=== PATIENT | female | born 1975 | race Caucasian/White ===

== ENCOUNTER 2016-04-18 19:41 | Emergency (ER) | payer OTHER ==
[~2016-04-18] VITALS: Ht 177.8 cm; Wt 144.1 kg
[~2016-04-18 19:41] MED LIST: PRENATAL VITAMI1 TA5 PO
[2016-04-18 19:47] VITALS: BP 158/86; PULSE 94; TEMP 98.4
[2016-04-18] MEDS ORDERED: [UNRECOGNIZED DRUG - OTHER] (19:52)
[2016-04-18] MEDS ORDERED: DEPO-ESTRADIO5 MG/ML IM (19:53)
[2016-04-18] MEDS ORDERED: VIT B 12 (19:53)
[2016-04-18] MEDS ORDERED: ANTI ANXIETY MED (19:54)
[2016-04-18] MEDS ORDERED: SLEEPING PILL (19:55)
[2016-04-18] MEDS ORDERED: LEXAPRO20 MG PO (20:10)
[2016-04-18] MEDS ORDERED: DESYREL 100MG100 MG PO (20:11)
[2016-04-18] MEDS ORDERED: CYANOCOBAL1000 MCG/1 IM (20:11)
== END 2016-04-18 22:00 | disposition home or self-care (01) ==
LOC: COL.ER 19:41
DX: S89.81XA Other specified injuries of right lower leg, initial encounter (principal); X50.0XXA Overexertion from strenuous movement or load, initial encounter; Y93.79 Activity, other specified sports and athletics